=== PATIENT | male | born 1945 | race Caucasian/White ===

== ENCOUNTER 2017-10-17 13:25 | Day surgery (SDC) | payer MEDICARE, BC ==
[2017-10-17] MEDS ORDERED: Cyclopentolate 1% Opth Drop 2 ML BOT ONE (13:40)
[2017-10-17] MEDS ORDERED: Phenylephrine 2.5% Ophth Soln 5 ML BOT ONE (13:40)
[2017-10-17] MEDS ORDERED: Cyclopentolate 1% Opth Drop 2 ML BOT FS SCH (13:42)
[2017-10-17] MEDS ORDERED: Phenylephrine 2.5% Ophth Soln 5 ML BOT FS SCH (13:42)
[2017-10-17] MEDS ORDERED: Fluorouracil 100 MG, Enoxaparin Sodium 25 MG, EPINEPHrine 0.3 MG in Ophthalmic Irrigati... IVPB SCH (13:42)
[2017-10-17] MEDS ORDERED: Midazolam HCl 2 mg/2 ml Vial ONE (15:25)
[2017-10-17] MEDS ORDERED: Fentanyl 100 MCG/2 ML VIAL ONE (15:25)
[2017-10-17] MEDS ORDERED: Lidocaine 1% PF 5 ML VIAL ONE (15:52)
[2017-10-17] MEDS ORDERED: PROPOFOL 200 MG/20 ML VIAL ONE (15:52)
--- NOTE | 2017-10-17 22:07 | OP ---
DATE OF SURGERY: 10/17/2017 PREOPERATIVE DIAGNOSIS: Rhegmatogenous retinal detachment, right eye. POSTOPERATIVE DIAGNOSIS: Rhegmatogenous retinal detachment, right eye. PROCEDURE: Pars plana vitrectomy and retinal detachment repair, right eye. SURGEON: Roberto Hua M.D. ANESTHESIA: Local with monitored anesthesia care. COMPLICATIONS: None. PROCEDURE IN DETAIL: The patient was identified in the preoperative holding area. Appropriate infor med consent for the planned surgical procedure on the right eye had been obtained. The patient was t ransported to the operative suite. Appropriate cardiopulmonary monitoring was established. Local an esthesia was obtained using retrobulbar and modified Van Lint lid block using 50/50 mixture of 4% lid ocaine and 0.75% bupivacaine. The patient was prepped and draped in the usual sterile manner for oph thalmic surgery on the right eye. Lid speculum was placed in the right eye. The 25-gauge trocars we re placed in conjunctiva and sclera supratemporally, inferotemporally, and supranasally. Infusion li ne was placed inferotemporally. Light pipe and vitreous cutter were inserted into the eye. Core vit rectomy was performed. Tears were noted at the 10 o'clock and 12:30 o'clock position. Posterior shaq in retinotomies were created along the same meridians. A complete air fluid exchange was performed w ith 10 minutes being allowed for fluid to drain posteriorly. A 360 laser was placed with an endolase r delivery device. A 28% sulfur hexafluoride gas was infused into the eye. Supratemporal and supran addison sclerotomy suture closed. Retrobulbar Kenalog and subconjunctival Ancef were placed. Antibioti c ointment placed, and the eye was patched and shielded. The patient was taken to the postoperative recovery unit in good condition having suffered no immediate perioperative complications. DISCHARGE INSTRUCTIONS: The patient was instructed to keep patch and shield on, avoid lifting or trisha ding, position head up or left side down. Follow up in the morning with Dr. Hua.
== END 2017-10-17 17:50 | disposition home or self-care (01) ==
LOC: SDC 13:25
PROVIDERS: ATTEND Ophthalmology Retina Specialist
PROC: 08T43ZZ Resection of Right Vitreous, Percutaneous Approach (ICD-10-PCS; principal; 2017-10-17)
PROC: 08QE3ZZ Repair Right Retina, Percutaneous Approach (ICD-10-PCS; 2017-10-17)
DX: H33.021 Retinal detachment with multiple breaks, right eye (principal)
CPT/HCPCS: 67025; J0171; J1650; J2001; J2250; J2704; J3010; J9190

== ENCOUNTER 2017-11-12 15:24 | Day surgery (SDC) | payer MEDICARE, BC ==
[~2017-11-12 15:24] MED LIST: Bupivacaine 0.75% 10 ML AMP ONE; CEFAZOLIN 1 GM VIAL ONE; Lidocaine 1% PF 5 ML VIAL ONE; Lidocaine 4% PF 5 ML AMP ONE; Maxitrol 0.1% Opth Oint 3.5 GM TUBE ONE; PROPOFOL 200 MG/20 ML VIAL ONE; Triamcinolone 40 MG/ML VIAL ONE
[2017-11-12] MEDS ORDERED: Fluorouracil 100 MG, Enoxaparin Sodium 25 MG in Ophthalmic Irrigation Solution 500 ML IVPB SCH (15:55)
[2017-11-12] MEDS ORDERED: Phenylephrine 2.5% Ophth Soln 5 ML BOT ONE (16:30)
[2017-11-12] MEDS ORDERED: Cyclopentolate 1% Opth Drop 2 ML BOT ONE (16:30)
[2017-11-12] MEDS ORDERED: Fentanyl 100 MCG/2 ML VIAL ONE (17:47)
[2017-11-12] MEDS ORDERED: Lidocaine 2% 10 ML INJ ONE (17:47)
[2017-11-12] MEDS ORDERED: Midazolam HCl 2 mg/2 ml Vial ONE (17:47)
[2017-11-12] MEDS ORDERED: PROPOFOL 20 ML ONE (17:47)
--- NOTE | 2017-11-13 01:53 | OP ---
DATE OF SURGERY: 11/12/2017 PREOPERATIVE DIAGNOSIS: Rhegmatogenous retinal detachment, right eye. POSTOPERATIVE DIAGNOSIS: Rhegmatogenous retinal detachment, right eye. PROCEDURE: Pars plana vitrectomy and retinal detachment repair, right eye. SURGEON: Roberto Hua MD ANESTHESIA: Local with monitored anesthesia care. PROCEDURE IN DETAIL: The patient was identified in the preoperative holding area. Appropriate infor med consent for the planned surgical procedure on the right eye had been obtained. The patient was t ransported to the operative suite where appropriate cardiopulmonary monitoring established. Local an esthesia was obtained using retrobulbar and modified Van Lint lid block using 50:50 mixture of 4% lid ocaine, 0.75% bupivacaine. The patient was prepped and draped in usual sterile manner for ophthalmic surgery on the right eye. Lid speculum was placed in the right eye. The 25-gauge trocars were plac ed in conjunctiva and sclera supratemporally, inferotemporally, and supranasally. Infusion line was placed inferotemporally. Light pipe and vitreous cutter were inserted into the eye. Core vitrectomy was performed. An open hole was noted at the 10 o'clock position. Posterior drain retinotomy was c reated and complete air fluid exchange was performed with 10 minutes being allowed for fluid to drain posteriorly. Laser was placed through the temporal retina in the area of the retinal detachment. A 15% perfluoropropane gas was infused into the eye. Trocars were removed. Eye was noted to retain p ressure well. Retrobulbar Kenalog and subconjunctival Ancef were placed. Atropine and antibiotic oi ntment were placed, and the eye was patched and shielded. Patient was taken to the postoperative rec overy unit in good condition having suffered no immediate perioperative complications. DISCHARGE INSTRUCTIONS: The patient was instructed to keep patch and shield on, avoid lifting or trisha ding, and follow up in the morning with Dr. Hua.
== END 2017-11-12 20:30 | disposition home or self-care (01) ==
LOC: SDC 15:24 → EEVIPCON 15:24 → SDC 20:30
PROVIDERS: ATTEND Ophthalmology Retina Specialist
PROC: 08T43ZZ Resection of Right Vitreous, Percutaneous Approach (ICD-10-PCS; principal; 2017-11-12)
DX: H33.001 Unspecified retinal detachment with retinal break, right eye (principal)
CPT/HCPCS: 67025; J0690; J1650; J2001; J2250; J2704; J3010; J3301; J3490; J9190

== ENCOUNTER 2018-03-20 15:36 | Emergency (ER) | payer MEDICARE, BC ==
[2018-03-20 16:08] LABS: #Basophils 0.1 thou/uL (0.0-0.2); #Eosinphils 0.1 thou/uL (0.0-0.7); #Lymphocytes 1.3 thou/uL (1.20-3.40); #Monocytes 0.5 thou/uL (0.11-0.59); #Neutrophils 2.6 thou/uL (1.40-6.50); %Basophils 1.2 % (0.0-1.0); %Eosinophils 1.9 % (0.0-10.0); %Lymphocytes 28.6 % (21.0-51.0); %Monocytes 10.8 % (0.0-10.0); %Neutrophils 57.6 % (42.0-75.0); Mean Corpuscular HGB CONC 34.1 g/dL (32.0-36.0); Mean Corpuscular Hemoglobin 30.7 pg (27.0-31.0); Mean Corpuscular Volume 90.2 fL (78.0-98.0); Mean Platelet Volume 8.3 fL (7.4-10.4); Platelet Count 220 thou/uL (130-400); White Blood Cell (WBC) Count 4.6 thou/uL (4.8-10.8)
[2018-03-20 16:33] LABS: ALT (SGPT) 24 U/L (8-55); AST (SGOT) 27 U/L (5-34); Albumin 4.4 g/dL (3.4-4.8); Alkaline Phosphatase 44 U/L (40-150); Anion Gap 11 mmol/L (10-20); BUN (Urea Nitrogen) 10 mg/dL (8.4-25.7); Bilirubin, Total 0.5 mg/dL (0.2-1.2); Calc. Creatinine Clearance 0 mL/min (70-130); Calcium 9.5 mg/dL (7.8-10.44); Carbon Dioxide 28 mmol/L (23-31); Chloride 104 mmol/L (98-107); Estimated GFR-MDRD 67; Globulin 2.8 g/dL (2.4-3.5); Glucose 112 mg/dL (83-110); Potassium 4.2 mmol/L (3.5-5.1); Protein, Total 7.2 g/dL (5.8-8.1); Sodium 139 mmol/L (136-145)
[2018-03-20 16:35] LABS: Troponin I Less than 0.010 ng/mL (< 0.028)
[2018-03-20 16:41] LABS: CKMB 8.2 ng/mL (0-6.6)
[2018-03-20 16:50] LABS: Bilirubin Negative (Negative); Blood, Urine Negative (Negative); Clarity CLEAR (Clear); Glucose, Urine (Dipstick) Negative (Negative); Leukocyte Negative (Negative); Nitrite Negative (Negative); Protein, Urine (Dipstick) Negative (Neg-Trace); Specific Gravity, Urine 1.006 (1.002-1.036); Urobilinogen 0.2 mg/dL (0.2-1.0); pH, Urine 7.5 (5.0-9.0)
--- NOTE | 2018-03-20 19:24 | CT ---
HEAD CT WITHOUT CONTRAST: Date: 03-20-18 Comparison: None available. History: Confusion and short term memory loss. Technique: Serial axial CT imaging obtained at 5 mm intervals from vertex through the skull base with out contrast. FINDINGS: The globe on the right is abnormally hyperdense which could signify a prosthesis or trauma/mass. Clin ical correlation essential. The imaged paranasal sinuses/mastoid air cells are well aerated. No displaced calvarial fracture. No intracranial hemorrhage, midline shift, mass effect, or ventricular enlargement. Mild diffuse cerebra l volume loss. IMPRESSION: Abnormal hyperdensity of the right globe. No intracranial hemorrhage. POS: H
== END 2018-03-20 20:01 | disposition home or self-care (01) ==
LOC: ERS 15:36
DX: R41.3 Other amnesia (principal); F41.9 Anxiety disorder, unspecified; F32.9 Major depressive disorder, single episode, unspecified; F17.220 Nicotine dependence, chewing tobacco, uncomplicated; Z79.82 Long term (current) use of aspirin
CPT/HCPCS: 36415; 70450; 80053; 81003; 82553; 84484; 85025; 87086; 93005

== ENCOUNTER 2018-05-01 06:46 | Day surgery (SDC) | payer MEDICARE, BC ==
[2018-04-30 13:07] VITALS: BMI 19.8
[~2018-05-01 06:46] MED LIST changes: -Bupivacaine 0.75% 10 ML AMP ONE; -CEFAZOLIN 1 GM VIAL ONE; +Cyclopentolate 1% Opth Drop 2 ML BOT FS SCH; +Fluorouracil 100 MG, Enoxaparin Sodium 25 MG, EPINEPHrine 0.3 MG in Ophthalmic Irrigati... FS SCH; -Lidocaine 1% PF 5 ML VIAL ONE; -Lidocaine 4% PF 5 ML AMP ONE; -Maxitrol 0.1% Opth Oint 3.5 GM TUBE ONE; -PROPOFOL 200 MG/20 ML VIAL ONE; +Phenylephrine 2.5% Ophth Soln 5 ML BOT FS SCH; -Triamcinolone 40 MG/ML VIAL ONE
[2018-05-01] MEDS ORDERED: Phenylephrine 2.5% Ophth Soln 5 ML BOT ONE (07:46)
[2018-05-01] MEDS ORDERED: Cyclopentolate 1% Opth Drop 2 ML BOT ONE (07:46)
[2018-05-01] MEDS ORDERED: PROPOFOL 20 ML ONE (09:22)
[2018-05-01] MEDS ORDERED: Fentanyl 100 MCG/2 ML VIAL ONE (09:22)
[2018-05-01] MEDS ORDERED: Maxitrol 0.1% Opth Oint 3.5 GM TUBE ONE (14:47)
[2018-05-01] MEDS ORDERED: PROPOFOL 200 MG/20 ML VIAL ONE (14:47)
[2018-05-01] MEDS ORDERED: CEFAZOLIN 1 GM VIAL ONE (14:47)
[2018-05-01] MEDS ORDERED: Lidocaine 1% PF 5 ML VIAL ONE ×2 (14:47)
[2018-05-01] MEDS ORDERED: Lidocaine 4% PF 5 ML AMP ONE (14:47)
[2018-05-01] MEDS ORDERED: Bupivacaine 0.75% 10 ML AMP ONE (14:47)
[2018-05-01] MEDS ORDERED: Triamcinolone 40 MG/ML VIAL ONE (14:47)
--- NOTE | 2018-05-01 23:55 | OP ---
DATE OF PROCEDURE: 05/01/2018 PREOPERATIVE DIAGNOSIS: Vitreous opacification, right eye. POSTOPERATIVE DIAGNOSIS: Vitreous opacification, right eye. PROCEDURE PERFORMED: Pars plana vitrectomy, right eye. ANESTHESIA: Local with monitored anesthesia care. DESCRIPTION OF PROCEDURE: The patient was identified in the preoperative holding area. Appropriate informed consent for the planned surgical procedure on the right eye had been obtained. The patient was transported to the operative suite and appropriate cardiopulmonary monitoring was established. Local anesthesia obtained with a retrobulbar block. The eye was prepped and draped in the usual sterile manner for ophthalmic surgery. Lid speculum was placed in the right eye. A 25-gauge trocar was placed inferotemporal, superonasally. A 20-gauge sclerotomy was created with an MVR blade superotemporally. Viscous fluid device was placed into the eye and silicone oil was removed. Vitreous cutter was removed from the eye and excess vitreous and silicone oil bubbles were removed. No holes, breaks, or tears were identified. Retina appeared flat. Sclerotomy was suture closed with 7-0 Vicryl suture and 6-0 plain gut suture. Retrobulbar Kenalog and subconjunctival Ancef were placed. Atropine antibiotic ointment was placed, and the eye was patched and shielded. The patient was taken to the postop recovery unit in good condition, having suffered no immediate perioperative complications. The patient was instructed to keep the patch and shield on and was asked to follow up in the morning with Dr. Hua. Job ID: [id number]
== END 2018-05-01 11:18 | disposition home or self-care (01) ==
LOC: SDC 06:46
PROVIDERS: ATTEND Ophthalmology Retina Specialist
PROC: 08T43ZZ Resection of Right Vitreous, Percutaneous Approach (ICD-10-PCS; principal; 2018-05-01)
DX: H43.391 Other vitreous opacities, right eye (principal); Z79.82 Long term (current) use of aspirin; Z79.899 Other long term (current) drug therapy
CPT/HCPCS: J0171; J0690; J1650; J2001; J2704; J3010; J3301; J3490; J9190

== ENCOUNTER 2019-06-10 08:13 | Outpatient (CLI) | payer MEDICARE, BC ==
--- NOTE | 2019-06-10 09:15 | BD ---
DEXA BONE DENSITY STUDY: Date: 06/10/2019 HISTORY: Osteoporosis screening. COMPARISON: None. FINDINGS: Lumbar Spine: BMD (g/cm2) L1 0.939 T-Score: -1.2 Z-Score: -0.3 L2 1.082 T-Score: -0.1 Z-Score: 0.9 L3 1.129 T-Score: 0.2 Z-Score: 1.2 L4 1.166 T-Score: 0.7 Z-Score: 1.7 L1-L4 1.087 T-Score: 0.0 Z-Score: 0.9 Left Femoral Neck: 0.831 T-Score: -0.7 Z-Score: 0.5 Total Femur: 0.992 T-Score: -0.3 Z-Score: 0.5 WHO Classification: Normal. IMPRESSION: Normal bone mineral density. POS: CET
== END 2019-06-10 08:14 | disposition home or self-care (01) ==
LOC: BICMAMMO 08:13
PROVIDERS: ATTEND Family Medicine
DX: Z13.820 Encounter for screening for osteoporosis (principal); M85.88 Other specified disorders of bone density and structure, other site
CPT/HCPCS: 77080